=== PATIENT | female | born 1980 | race Caucasian/White ===

== ENCOUNTER 2017-01-18 06:46 | Emergency (ER) | payer BC ==
[~2017-01-18] VITALS: Ht 152.4 cm; Wt 79.0 kg
[~2017-01-18 06:46] MED LIST: BENTYL10 MG PO; CITALOPRAM HBR40 MG PO; COLACE100 MG PO; DAILY VALUE1 EACH PO; DAILY VITE1 EAC1 PO; DOCUSATE SODIU100 MG PO; DOXYCYCLINE HY100 MG PO; ENDOCET 5-3251 EACH PO; INTUNIV1 MG PO; INTUNIV2 MG PO; KEFLEX500 MG PO; LANSOPRAZOLE30 MG PO; METHYLPHENIDATE5 MG PO; MICROGESTIN FE1 EAC1 PO; MOTRIN800 MG PO; MULTI COMPLETE1 EACH PO; Micronor,Nor-Q-D,Err PO; NATALCARE RX1 TABLE1 PO; NUVARING VAGIN1 EACH PO; NUVARING VAGIN1 EACH VG; OXCARBAZEPINE300 MG PO; PERCOCET 5/31 TABLET PO; TAGAMET PO; TRILEPTAL300 MG PO; TUMS DUAL ACTI1 EACH PO; ZANTAC150 MG PO; ZOFRAN ODT8 MG PO; ZOFRAN4 MG PO; trileptal
[2017-01-18 08:10] LABS: EOSINOPHIL (%) 0.3 % (0-5); HEMATOCRIT 41.3 % (36.0-46.0); IMMATURE GRANULOCYTE (%) 0.4 % (0.0-0.7); INSTRUMENT ABS NEUTROPHIL CT 4.6 K/uL; LYMPHOCYTE COUNT 1.8 K/uL (1.0-2.8); MCH 28.5 PG (29.0-34.0); MCHC 33.2 G/DL (30.0-36.0); MCV 85.9 FL (83-99); MEAN PLAT.VOLUME 10.1 uM^3 (9.5-12.4); MONOCYTE (%) 10.2 % (3-12); MONOCYTE COUNT 0.7 K/uL (0-0.8); NEUTROPHIL (%) 64.3 % (45-76); NEUTROPHIL COUNT 4.6 K/uL (1.8-6.4); PLATELET COUNT 298 K/uL (156-360); RBC DIS.WIDTH-SD 40.8 % (39-53); RED BLOOD COUNT 4.81 M/uL (3.80-5.20); WHITE BLOOD COUNT 7.2 K/uL (4.1-10.2)
[2017-01-18 08:49] LABS: ALKALINE PHOSPHATASE 78 IU/L (3-129); ANION GAP 15 MEQ/L (2-14); CHLORIDE 103 MEQ/L (99-109); GFR ESTIMATE (CALCULATED) > 59 mL/min/; GLUCOSE 114 mg/dL (70-99); LIPASE 19 U/L (1.0-51.0); POTASSIUM 3.1 MEQ/L (3.7-5.4); SAMPLE HEMOLYSIS CHECK 0; SAMPLE ICTERIC CHECK 0; SAMPLE LIPEMIA CHECK 0; SODIUM 138 MEQ/L (136-147); TOTAL BILIRUBIN 0.6 MG/DL (0.0-1.0); UREA NITROGEN (BUN) 11 mg/dL (9-23)
[2017-01-18] MEDS ORDERED: BENTYL20 MG PO (09:55)
[2017-01-18] MEDS ORDERED: ZOFRAN ODT4 MG PO (09:56)
[2017-01-18 10:10] VITALS: BP 132/89
== END 2017-01-18 10:13 | disposition home or self-care (01) ==
LOC: EME 06:46
PROVIDERS: Emergency Medicine
DX: R10.12 Left upper quadrant pain (principal); R10.13 Epigastric pain; R11.10 Vomiting, unspecified; R19.7 Diarrhea, unspecified
CPT/HCPCS: 80053; 81003; 83690; 85025; 87493; 99281; 99285; J2270; J2405; J7030

== ENCOUNTER 2017-03-02 07:41 | Emergency (ER) | payer BC ==
[~2017-03-02] VITALS: Ht 152.4 cm; Wt 82.0 kg
[~2017-03-02 07:41] MED LIST changes: +BENTYL20 MG PO; +ZOFRAN ODT4 MG PO
[2017-03-02] MEDS ORDERED: OXCARBAZEPINE300 MG PO (08:00)
[2017-03-02] MEDS ORDERED: ADDERALL XR 1515 MG PO (08:01)
[2017-03-02 08:20] LABS: HEMATOCRIT 38.4 % (36.0-46.0); MCH 28.9 PG (29.0-34.0); MCHC 33.1 G/DL (30.0-36.0); MCV 87.3 FL (83-99); MEAN PLAT.VOLUME 9.8 uM^3 (9.5-12.4); PLATELET COUNT 275 K/uL (156-360); RBC DIS.WIDTH-SD 41.5 % (39-53)
[2017-03-02 08:29] LABS: D-DIMER ELISA 0.19 mg/L FEU (< 0.57)
[2017-03-02 08:33] LABS: CHLORIDE 106 mEq/L (99-109); POTASSIUM 4.1 mEq/L (3.7-5.4); SODIUM 138 mEq/L (136-147)
[2017-03-02 08:35] LABS: GLUCOSE 95 mg/dL (70-99)
[2017-03-02 08:37] LABS: ANION GAP 11 MEQ/L (2-14); TOTAL BILIRUBIN 0.3 mg/dL (0.0-1.0)
[2017-03-02 08:39] LABS: ALKALINE PHOSPHATASE 68 IU/L (3-129); GFR ESTIMATE (CALCULATED) > 59 mL/min/
[2017-03-02 08:40] LABS: UREA NITROGEN (BUN) 12 mg/dL (9-23)
[2017-03-02 08:46] LABS: TROP-I INTERPRETATION NEGATIVE; TROPONIN-I < 0.01 ng/mL (0.0-0.30)
[2017-03-02] MEDS ORDERED: MOTRIN800 MG PO (10:01)
[2017-03-02 10:29] VITALS: BP 117/75
== END 2017-03-02 10:30 | disposition home or self-care (01) ==
LOC: EME 07:41
PROVIDERS: Emergency Medicine
DX: R09.1 Pleurisy (principal); F32.9 Major depressive disorder, single episode, unspecified; Z88.6 Allergy status to analgesic agent
CPT/HCPCS: 71010; 80053; 84484; 85027; 85379; 93005; 99281; 99284; J1885

== ENCOUNTER 2017-12-19 18:02 | Emergency (ER) | payer BC ==
[~2017-12-19] VITALS: Ht 152.4 cm; Wt 80.3 kg
[~2017-12-19 18:02] MED LIST changes: +ADDERALL XR 1515 MG PO
[2017-12-19 18:52] LABS: MCH 30.2 PG (29.0-34.0); MCHC 34.3 G/DL (30.0-36.0); MCV 87.9 FL (83-99); PLATELET COUNT 294 K/uL (156-360); RBC DIS.WIDTH-CV 12.9 % (11.8-14.6); RBC DIS.WIDTH-SD 41.6 % (39-53); RED BLOOD COUNT 3.98 M/uL (3.80-5.20); WHITE BLOOD COUNT 9.7 K/uL (4.1-10.2)
[2017-12-19 19:02] LABS: ALBUMIN 4.1 g/dL (3.2-4.8); CHLORIDE 106 mEq/L (99-109); POTASSIUM 3.8 mEq/L (3.7-5.4); SODIUM 139 mEq/L (136-147)
[2017-12-19 19:05] LABS: GLUCOSE 85 mg/dL (70-99); TOTAL PROTEIN 6.8 g/dL (6.4-8.3)
[2017-12-19 19:07] LABS: TOTAL BILIRUBIN 0.2 mg/dL (0.0-1.0)
[2017-12-19 19:08] LABS: ALKALINE PHOSPHATASE 66 IU/L (3-129); CREATININE 0.7 mg/dL (0.6-1.3); GFR ESTIMATE (CALCULATED) > 59 mL/min/
[2017-12-19 19:09] LABS: UREA NITROGEN (BUN) 9 mg/dL (9-23)
[2017-12-19 19:10] LABS: AST (GOT) 14 IU/L (2-34)
[2017-12-19 19:11] LABS: ALT (GPT) 16 IU/L (3-49)
[2017-12-19 19:18] LABS: QUANTITATIVE HCG < 4.0 MIU/ML
[2017-12-19 21:44] LABS: APPEARANCE CLEAR ((CLEAR)); BILIRUBIN NEGATIVE; BLOOD NEGATIVE; COLOR STRAW ((YELLOW)); GLUCOSE (STRIP) NEGATIVE; KETONES NEGATIVE; LEUKOCYTES NEGATIVE; NITRITE NEGATIVE; PROTEIN (STRIP) NEGATIVE; UCUL ADDED? NO; UROBILINOGEN 0.2 MG/DL (0.2-1.0)
[2017-12-19] MEDS ORDERED: ULTRAM50 MG PO (22:51)
[2017-12-19 23:08] VITALS: BP 130/70
== END 2017-12-19 23:09 | disposition home or self-care (01) ==
LOC: EME 18:02
PROVIDERS: Physician Assistant Medical
DX: N83.202 Unspecified ovarian cyst, left side (principal); F32.9 Major depressive disorder, single episode, unspecified; Z87.19 Personal history of other diseases of the digestive system; Z90.49 Acquired absence of other specified parts of digestive tract; Z88.5 Allergy status to narcotic agent
CPT/HCPCS: 74177; 76856; 80053; 81003; 84702; 85027; 99281; 99285; J1885; J7030